=== PATIENT | male | born 1930 | race Caucasian/White ===

== ENCOUNTER 2018-02-14 08:13 | Outpatient (CLI) | payer OTHER ==
[~2018-02-14 08:13] MED LIST: LISINOPRIL10 MG; SYNTHROID50 MCG; TOPROL XL50 M1
== END 2018-02-14 08:18 | disposition home or self-care (01) ==
LOC: NUCLEAR 08:13
DX: M81.0 Age-related osteoporosis without current pathological fracture (principal)

== ENCOUNTER 2019-12-09 09:13 | Outpatient (CLI) | payer OTHER | END 2019-12-09 09:19 | disposition home or self-care (01) | LOC: RAD 09:13 | PROVIDERS: ATTEND Physical Medicine & Rehabilitation | DX: M54.2 Cervicalgia (principal) ==